=== PATIENT | female | born 1945 | race Caucasian/White ===

== ENCOUNTER 2018-01-26 09:17 | Outpatient (CLI) | payer MEDICARE, BC | END 2018-01-26 09:18 | disposition home or self-care (01) | LOC: BICMAMMO 09:17 | PROVIDERS: ATTEND Family Medicine | DX: Z08 Encounter for follow-up examination after completed treatment for malignant neoplasm (principal); Z85.3 Personal history of malignant neoplasm of breast; R92.2 Inconclusive mammogram | CPT/HCPCS: 77066; G0279 ==

== ENCOUNTER 2018-07-07 10:34 | Outpatient (CLI) | payer MEDICARE, BC ==
--- NOTE | 2018-07-07 13:16 | BD ---
DEXA BONE MINERAL DENSITY STUDY: HISTORY: Osteoporosis screening. Postmenopausal female. COMPARISON: DEXA study from 2017. FINDINGS: Lumbar Spine: BMD (g/cm2) L1 1.056 T-Score: 0.6 2.7 L2 1.007 T-Score: -0.2 2.1 L3 1.320 T-Score: 2.1 4.6 L4 1.246 T-Score: 1.7 4.2 L1-L4 1.157 T-Score: 1.0 3.4 WHO calcification is normal. Femoral Neck: 0.622 T-Score: -2.0 0.0 Total Femur: 0.819 T-Score: -1.0 0.7 WHO calcification of osteopenia. Impression: Osteopenia left femoral neck. POS: ELVIE
== END 2018-07-07 10:35 | disposition home or self-care (01) ==
LOC: BICMAMMO 10:34
PROVIDERS: ATTEND Internal Medicine Hematology & Oncology
DX: M85.852 Other specified disorders of bone density and structure, left thigh (principal); C50.919 Malignant neoplasm of unspecified site of unspecified female breast
CPT/HCPCS: 77080

== ENCOUNTER 2019-02-05 13:19 | Outpatient (CLI) | payer MEDICARE, BC ==
--- NOTE | 2019-02-05 14:41 | MMO ---
Bilateral MAMMO Bilat Diag DDI+DONNIE. CLINICAL HISTORY: Patient is 73 years old and is seen for diagnostic exam. The patient has no family history of breast cancer. 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 VIEWS: The views performed were: bilateral craniocaudal with tomosynthesis; bilateral mediolateral oblique with tomosynthesis; and bilateral mediolateral. FILMS COMPARED: The present examination has been compared to prior imaging studies performed at [facility] on 12/30/2015, 01/06/2017, 01/26/2018 and 02/05/2019. MAMMOGRAM FINDINGS: There are scattered fibroglandular densities. There is a new irregular mass measuring 9 millimeters with indistinct margins seen in the left breast at 3 o'clock. Ultrasound demonstrates a corresponding hypoechoic mass. In the right breast, there are no suspicious masses, calcifications or areas of architectural distortion. IMPRESSION: NEW MASS IN THE LEFT BREAST IS SUSPICIOUS. AN ULTRASOUND-GUIDED BREAST BIOPSY IS RECOMMENDED. RESULTS AND RECOMMENDATIONS DISCUSSED WITH THE PATIENT AND QUESTIONS ANSWERED. THE RESULTS OF THIS EXAM WERE SENT TO THE PATIENT. ACR BI-RADS Category 4 - Suspicious abnormality - biopsy should be considered MAMMOGRAPHY NOTE: 1. A negative mammogram report should not delay a biopsy if a dominant of clinically suspicious mass is present. 2. Approximately 10% to 15% of breast cancers are not detected by mammography. 3. Adenosis and dense breasts may obscure an underlying neoplasm.
--- NOTE | 2019-02-05 14:58 | ULT ---
LIMITED LEFT BREAST ULTRASOUND: DATE: 02/05/2019. PROVIDED CLINICAL HISTORY: Abnormal mammogram. FINDINGS: Limited sonographic interrogation was performed of the left breast at the 3 o'clock position in the r egion of mammographic concern. A taller than wide irregular hypoechoic mass measuring approximately 7 mm maximally is demonstrated, corresponding to the mammogram finding. IMPRESSION: BIRADS category 4 - suspicious abnormality. Ultrasound-guided biopsy is recommended. Results and recommendations discussed with the patient, who voiced understanding. POS: OFF
--- NOTE | 2019-02-05 15:51 | MMO ---
Left Breast MAMMO Unilat Diag DDI LT. CLINICAL HISTORY: Patient is 73 years old and is seen for diagnostic exam. 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 VIEWS: The views performed were: . FILMS COMPARED: The present examination has been compared to prior imaging studies performed at [facility] on 01/06/2017, 01/26/2018 and 02/05/2019. MAMMOGRAM FINDINGS: There are scattered fibroglandular densities. There is a biopsy clip seen in the left breast. IMPRESSION: BIOPSY CLIP IN THE LEFT BREAST IS CONFIRMED UTILIZING POST PROCEDURE MAMMOGRAM. THE RESULTS OF THIS EXAM WERE SENT TO THE PATIENT. MAMMOGRAPHY NOTE: 1. A negative mammogram report should not delay a biopsy if a dominant of clinically suspicious mass is present. 2. Approximately 10% to 15% of breast cancers are not detected by mammography. 3. Adenosis and dense breasts may obscure an underlying neoplasm.
--- NOTE | 2019-02-05 16:00 | ULT ---
ULTRASOUND GUIDED LEFT BREAST BIOPSY: DATE: 02/05/2019. PROVIDED CLINICAL HISTORY: Left breast mass. FINDINGS: Informed consent was obtained from the patient. The patient was placed on the sonography table in th e supine position and the previously described 3 o'clock left breast mass was localized sonographical ly. The skin overlying this region was prepped and draped in the usual sterile manner. The soft tis sues were infiltrated with 1% buffered Lidocaine. A small skin incision was made. Under continuous sonographic guidance, a 14-gauge core biopsy device was advanced adjacent to the lesion and 5 core sa mples were obtained. Subsequently, ultrasound guidance was utilized to deploy a biopsy site marker a djacent to the mass. The needle was removed and hemostasis achieved. No immediate complications. IMPRESSION: Technically successful ultrasound-guided left biopsy. Please correlate with histology results to fol low. POS: OFF
== END 2019-02-05 13:20 | disposition home or self-care (01) ==
LOC: BICMAMMO 13:19
PROVIDERS: ATTEND Internal Medicine Hematology & Oncology
DX: Z08 Encounter for follow-up examination after completed treatment for malignant neoplasm (principal); N63.20 Unspecified lump in the left breast, unspecified quadrant; Z85.3 Personal history of malignant neoplasm of breast; Z98.890 Other specified postprocedural states
CPT/HCPCS: 19083; 76642; 77065; 77066; G0279; 88305; 88341; 88342

== ENCOUNTER 2019-02-16 07:21 | Day surgery (SDC) | payer MEDICARE, BC ==
[2019-02-15 14:38] VITALS: BMI 30.1
--- NOTE | 2019-02-16 09:43 | NM ---
LYMPHOSCINTIGRAPHY: HISTORY: Malignant neoplasm of the left upper outer breast. TECHNIQUE: A lymphoscintigraphy was performed after administration of 0.439 mCi of Technetium 99m filtered sulfu r colloid in a periareolar fashion. FINDINGS: Uptake in the periareolar region is from the injections. Three axillary lymph nodes are seen with montes bsequent imaging. IMPRESSION: Three left axillary sentinel lymph nodes. POS: ELVIE
[2019-02-16] MEDS ORDERED: Bupivacaine/Epinephrine 0.25% 30 ML VIAL ONE (09:53)
[2019-02-16] MEDS ORDERED: Isosulfan Blue 50 MG/5 ML VIAL ONE (09:53)
[2019-02-16] MEDS ORDERED: Lidocaine 2% PF 5 ML VIAL ONE (09:53)
[2019-02-16 10:03] LABS: #Eosinphils 0.1 thou/uL (0.0-0.7); #Lymphocytes 2.1 thou/uL (1.20-3.40); #Monocytes 0.3 thou/uL (0.11-0.59); #Neutrophils 3.9 thou/uL (1.40-6.50); %Basophils 0.8 % (0.0-1.0); %Eosinophils 1.4 % (0.0-10.0); %Lymphocytes 32.2 % (21.0-51.0); %Neutrophils 60.6 % (42.0-75.0); Hemoglobin 12.1 g/dL (12.0-16.0); Mean Corpuscular HGB CONC 33.5 g/dL (32.0-36.0); Mean Corpuscular Hemoglobin 32.8 pg (27.0-31.0); Mean Corpuscular Volume 97.8 fL (78.0-98.0); Mean Platelet Volume 10.4 fL (7.4-10.4); Platelet Count 170 thou/uL (130-400); RBC Distribution Width 12.2 % (11.5-14.5); Red Blood Cell (RBC) Count 3.69 mill/uL (4.20-5.40); White Blood Cell (WBC) Count 6.4 thou/uL (4.8-10.8)
--- NOTE | 2019-02-16 10:09 | RAD ---
Exam: Chest one view HISTORY:Preoperative exam Comparison: None FINDINGS: Cardiac silhouette:Cardiomegaly. Pulmonary vessels: Normal Costophrenic angles: Clear LUNGS: No masses or consolidation. Patchy interstitial opacities are presumed to be due to chronic ch sami. Pneumothorax: None Osseous abnormalities: None IMPRESSION: No acute cardiopulmonary process.
[2019-02-16 10:18] LABS: Anion Gap 13 mmol/L (10-20); BUN (Urea Nitrogen) 22 mg/dL (9.8-20.1); Calc. Creatinine Clearance 81 mL/min (70-130); Calcium 9.2 mg/dL (7.8-10.44); Carbon Dioxide 24 mmol/L (23-31); Chloride 106 mmol/L (98-107); Estimated GFR-MDRD 70; Glucose 113 mg/dL (83-110); Potassium 4.1 mmol/L (3.5-5.1); Sodium 139 mmol/L (136-145)
[2019-02-16] MEDS ORDERED: Fentanyl 100 MCG/2 ML VIAL ONE (10:53)
--- NOTE | 2019-02-16 13:15 | MMO ---
Exam: Surgical specimen radiograph HISTORY: Previous breast biopsy. FINDINGS: Single radiograph of the surgical specimen demonstrates the surgical clip. Findings were co nveyed to the surgeon. IMPRESSION: Surgical clip is noted in the specimen.
[2019-02-16] MEDS ORDERED: HYDROcodone/Acetaminophen 5/325 mg Tablet ONE (14:39)
[2019-02-16] MEDS ORDERED: Dexamethasone 20 MG/5 ML VIAL ONE (16:23)
[2019-02-16] MEDS ORDERED: PHENYLEPHRINE-NS 100 MCG/ML 10 ML SYRINGE ONE (16:23)
[2019-02-16] MEDS ORDERED: Ondansetron PF 4 MG/2 ML Vial ONE (16:23)
[2019-02-16] MEDS ORDERED: PROPOFOL 200 MG/20 ML VIAL ONE (16:23)
[2019-02-16] MEDS ORDERED: Lidocaine 1% PF 5 ML VIAL ONE (16:23)
[2019-02-16] MEDS ORDERED: ePHEDrine 50 MG/ML VIAL ONE (16:23)
--- NOTE | 2019-02-22 00:06 | PDOC.OP ---
Operative Note - Operative Note Operative Note: PROCEDURE: Left breast lumpectomy and sentinel lymph node biopsy SURGEON: Brittanie Sampson M.D. DATE: 02/16/2019 PREOPERATIVE DIAGNOSIS: Recurrent left breast cancer POSTOPERATIVE DIAGNOSIS: Recurrent left breast cancer HISTORY: Patient is status post lumpectomy and sentinel lymph node biopsy for invasive left breast cancer 5 years ago. She did not undergo postoperative radiation therapy or chemotherapy but has been on hormonal therapy. She had a recurrent mass on mammogram this year and was found to have a 7 mm recurrent invasive cancer in the same quadrant of her breast. She has decided to proceed with breast conservation with postoperative radiation therapy, and repeat sentinel lymph node biopsy with axillary dissection if this is unsuccessful. Her axilla is clinically and ultrasonographically negative. She did have 2 lymph nodes light up on lymphoscintigraphy. PROCEDURE IN DETAIL: After informed consent was obtained the patient was taken to the operating room and placed in the supine position. General anesthesia was administered and the breast was prepped with all call and let fissure and injected subdermally behind the nipple. The breast was massaged for 5 minutes, and then the patient was positioned, prepped and draped. Local anesthesia was infused to the previous axillary incision. The skin was incised and dissection carried down to the area of highest activity by neoprobe. 2 small grossly normal -appearing lymph nodes were identified with a blue lymphatic leading to them. These were both excised and target counts performed. The first one had a target count of 155 and the second one had a target count of 25. Axilla was examined and palpated and no other palpable abnormal nodes were found. However there was an area of increased activity by neoprobe under the pectoralis minor representing level II lymph nodes. 2 active lymph nodes were identified, neither of which were grossly abnormal or enlarged. These both had target counts intermediate to the first 2 lymph nodes. No other areas of increased activity or abnormal palpable nodes were identified. The wound was irrigated and hemostasis verified. Additional local anesthesia was infused for postoperative pain control and the subcutaneous tissues were reapproximated with 3-0 Monocryl suture and the skin closed with 4-0 Monocryl suture. Attention was then turned to the lumpectomy. The mass in the left lateral breast was not palpable but was easily seen by ultrasound. The margins of the mass were marked on the overlying skin and a periareolar incision made. Flaps were raised in all directions and dissection was then carried down to the level of the pectoralis fascia. The tissue was dissected off of the pectoralis fascia leaving the fascia intact. The specimen was removed and marked for orientation with a long lateral, short superior, and deep superficial suture. He was examined by ultrasound and presence of the mass within the central portion of the specimen was confirmed. It was sent for specimen mammogram which showed presence of the mass and clip within the specimen. The wound was irrigated and hemostasis obtained using Bovie electrocautery. Additional local anesthesia was infused circumferentially for postoperative pain control. The subcutaneous tissues were reapproximated with a running 3-0 Monocryl suture and additional local anesthesia infused into the biopsy cavity. The skin was then closed with a running 4-0 subcuticular Monocryl suture. Dermabond dressings were placed to both incisions and once this was dry, fluffs compression dressings were placed and secured to the skin with tape. The patient was extubated and taken to the recovery room in good condition. Estimated blood loss was minimal. There were no complications. Specimens are sentinel lymph nodes 4 and left breast mass.
== END 2019-02-16 15:12 | disposition home or self-care (01) ==
LOC: SDC 07:21
PROVIDERS: ATTEND Surgery
PROC: 0HBU0ZZ Excision of Left Breast, Open Approach (ICD-10-PCS; principal; 2019-02-16)
PROC: 07B60ZX Excision of Left Axillary Lymphatic, Open Approach, Diagnostic (ICD-10-PCS; 2019-02-16)
DX: C50.812 Malignant neoplasm of overlapping sites of left female breast (principal); C77.3 Secondary and unspecified malignant neoplasm of axilla and upper limb lymph nodes; I10 Essential (primary) hypertension; E78.5 Hyperlipidemia, unspecified; F41.9 Anxiety disorder, unspecified; R73.03 Prediabetes; Z17.0 Estrogen receptor positive status [ER+]; Z79.811 Long term (current) use of aromatase inhibitors; Z79.899 Other long term (current) drug therapy; Z91.018 Allergy to other foods; Z90.12 Acquired absence of left breast and nipple
CPT/HCPCS: 19301; 38525; 38900; 71045; 76098; 78195; 80048; 85025; 88307; 88342; 93005; A9541; Q9968; 93010; J0131; J0690; J1100; J2001; J2405; J2704; J3010; J3490

== ENCOUNTER 2019-07-17 09:15 | Outpatient (CLI) | payer MEDICARE, BC ==
--- NOTE | 2019-07-17 10:48 | BD ---
DEXA BONE DENSITY SCAN: Date: 07/17/19 COMPARISON: 07/07/18. HISTORY: Postmenopausal female undergoing screening for osteoporosis. Lumbar Spine BMD (g/cm2) L1 1.019 T-Score 0.3 (previous 0.6) L2 1.028 T-Score 0.0 (previous -0.2) L3 1.405 T-Score 2.9 (previous 2.1) L4 1.330 T-Score 2.4 (previous 1.7) L1-L4 1.194 T-Score 1.3 (previous 1.0) Femoral Neck 0.626 T-Score -2.0 (previous -2.0) Total Femur 0.829 T-Score -0.9 (previous -1.0) IMPRESSION: Stable osteopenia within the femoral neck, correlating with a moderately increased risk for fracture. POS: TPC
== END 2019-07-17 09:16 | disposition home or self-care (01) ==
LOC: BICMAMMO 09:15
PROVIDERS: ATTEND Internal Medicine Hematology & Oncology
DX: Z13.820 Encounter for screening for osteoporosis (principal); C50.512 Malignant neoplasm of lower-outer quadrant of left female breast; T38.6X5A Adverse effect of antigonadotrophins, antiestrogens, antiandrogens, not elsewhere classified, initial encounter; M85.859 Other specified disorders of bone density and structure, unspecified thigh
CPT/HCPCS: 77080

== ENCOUNTER 2020-02-07 10:19 | Outpatient (CLI) | payer MEDICARE, BC ==
--- NOTE | 2020-02-07 11:20 | MMO ---
Bilateral MAMMO Bilat Diag DDI+DONNIE. CLINICAL HISTORY: Patient is 74 years old and is seen for diagnostic exam. The patient has no family history of breast cancer. The patient has a history of Excisional biopsy procedure revealed invasive ductal left breast carcinoma in February,; excisional breast biopsy procedure revealed invasive mucinous left breast carcinoma and Core biopsy procedure revealed invasive mucinous left breast carcinoma in November,. The patient has a history of left Ultrasound Guided Core Biopsy in 2018 - invasive ductal carcinoma, left Lumpectomy in Dec, 2014 - invasive ductal carcinoma and left needle biopsy in November, - malignant. VIEWS: The views performed were: bilateral craniocaudal with tomosynthesis; bilateral mediolateral oblique with tomosynthesis; and bilateral mediolateral with tomosynthesis. FILMS COMPARED: The present examination has been compared to prior imaging studies performed at [facility] on 01/26/2018 and 02/05/2019. This study has been interpreted with the assistance of computer-aided detection. MAMMOGRAM FINDINGS: There are scattered fibroglandular densities. There are post operative changes seen in the left breast. There are no suspicious masses, suspicious calcifications, or new areas of architectural distortion. IMPRESSION: THERE IS NO MAMMOGRAPHIC EVIDENCE OF MALIGNANCY. A ROUTINE FOLLOW-UP MAMMOGRAM IN 1 YEAR IS RECOMMENDED. THE RESULTS OF THIS EXAM WERE SENT TO THE PATIENT. ACR BI-RADS Category 2 - Benign finding MAMMOGRAPHY NOTE: 1. A negative mammogram report should not delay a biopsy if a dominant of clinically suspicious mass is present. 2. Approximately 10% to 15% of breast cancers are not detected by mammography. 3. Adenosis and dense breasts may obscure an underlying neoplasm. Reported by: WILNER PLAZA MD Electonically Signed: [id number]
== END 2020-02-07 10:20 | disposition home or self-care (01) ==
LOC: BICMAMMO 10:19
PROVIDERS: ATTEND Internal Medicine Hematology & Oncology
DX: C50.912 Malignant neoplasm of unspecified site of left female breast (principal)
CPT/HCPCS: 77066; G0279

== ENCOUNTER 2020-07-29 08:20 | Outpatient (CLI) | payer MEDICARE, BC ==
--- NOTE | 2020-07-29 09:01 | BD ---
EXAM: Bone densitometry using DEXA HISTORY: 75 yo female. Screening for postmenopausal osteoporosis FINDINGS: L1--bone mineral density 0.978 g/sq cm; T score -0.1 ; Z score 2.1 L2--bone mineral density 1.06 g/sq cm; T score 0.5 ; Z score 3.0 L3--bone mineral density 1.390 g/sq cm; T score 2.8 ; Z score 5.3 L4--bone mineral density 1.310 g/sq cm; T score 2.3 ; Z score 4.9 Total L1-L4--bone mineral density 1.199 g/sq cm; T score 1.4 ; Z score 3.8 Left femoral neck--bone mineral density0.587; T score -2.4 ; Z score -0.2 Total proximal left femur--bone mineral density 0.809; T score -1.1 ; Z score 0.8 There has been an interval improvement of 0.4% in the BMD of the lumbar spine and a reduction of 2. 5% in the BMD of the proximal femur since the previous study of 07/17/2019. The 10 year fracture risk for a major osteoporotic fracture is 16% and for a hip fracture is 4.7%. IMPRESSION: Osteopenia
== END 2020-07-29 08:21 | disposition home or self-care (01) ==
LOC: BICMAMMO 08:20
PROVIDERS: ATTEND Internal Medicine Hematology & Oncology
DX: Z13.820 Encounter for screening for osteoporosis (principal); M85.852 Other specified disorders of bone density and structure, left thigh; Z78.0 Asymptomatic menopausal state
CPT/HCPCS: 77080

== ENCOUNTER 2021-02-06 08:13 | Outpatient (CLI) | payer MEDICARE, BC | END 2021-02-06 08:14 | disposition home or self-care (01) | LOC: BICMAMMO 08:13 | PROVIDERS: ATTEND Internal Medicine Hematology & Oncology | DX: C50.512 Malignant neoplasm of lower-outer quadrant of left female breast (principal) | CPT/HCPCS: 77066; G0279 ==

== ENCOUNTER 2021-05-19 12:18 | Outpatient (CLI) | payer MEDICARE, BC ==
[~2021-05-19 12:18] MED LIST: Iopamidol-370 76% 500 ML 1 ML ONE
== END 2021-05-19 12:19 | disposition home or self-care (01) ==
LOC: BICCT 12:18
PROVIDERS: ATTEND Otolaryngology Plastic Surgery within the Head & Neck
DX: K11.8 Other diseases of salivary glands (principal)
CPT/HCPCS: 70491; Q9967

== ENCOUNTER 2021-06-04 13:51 | Outpatient (CLI) | payer MEDICARE, BC | END 2021-06-04 13:52 | disposition home or self-care (01) | LOC: BICULT 13:51 | PROVIDERS: ATTEND Otolaryngology Plastic Surgery within the Head & Neck | DX: E07.9 Disorder of thyroid, unspecified (principal); E04.1 Nontoxic single thyroid nodule | CPT/HCPCS: 76536 ==

== ENCOUNTER → 2021-06-18 | Day surgery (SDC) | payer MEDICARE, BC ==
[~2021-06-18] MED LIST changes: -Iopamidol-370 76% 500 ML 1 ML ONE; +Lidocaine 1% PF 5 ML VIAL ONE; +Sodium Bicarbonate 2.5 MEQ/5 ML VIAL ONE
[2021-06-18 13:41] VITALS: BP 124/67; TEMP 97.6
== END ==
LOC: ULT 12:40
PROVIDERS: ATTEND Otolaryngology Plastic Surgery within the Head & Neck
PROC: 0G9H3ZX Drainage of Right Thyroid Gland Lobe, Percutaneous Approach, Diagnostic (ICD-10-PCS; principal; 2021-06-18)
DX: E04.1 Nontoxic single thyroid nodule (principal); K11.8 Other diseases of salivary glands; R73.03 Prediabetes; E78.5 Hyperlipidemia, unspecified; I10 Essential (primary) hypertension; Z79.899 Other long term (current) drug therapy; Z91.018 Allergy to other foods
CPT/HCPCS: 60100; 76942; 88173; 88305

== ENCOUNTER 2021-07-22 12:35 | Outpatient (CLI) | payer MEDICARE, BC ==
[2021-07-22 13:46] LABS: Bilirubin Neg (Negative); Blood, Urine Negative (Negative); Clarity Clear (Clear); Glucose, Urine (Dipstick) Normal (Negative); Ketone, Urine Negative (Negative); Leukocyte 500 (Negative); Nitrite Negative (Negative); Protein, Urine (Dipstick) 15 mg/dl (Neg-Trace)
[2021-07-22 13:48] LABS: #Eosinphils 0.1 10x3/uL (0.0-0.5); #Monocytes 0.4 10x3/uL (0.0-1.1); #Neutrophils 5.4 10x3/uL (1.5-8.4); %Basophils 0.3 % (0.0-2.0); %Eosinophils 1.6 % (0.0-6.0); %Lymphocytes 26.2 % (18.0-47.0); %Monocytes 4.6 % (0.0-10.0); %Neutrophils 67.2 % (40.0-75.0); Mean Corpuscular HGB CONC 32.8 g/dL (32.0-36.0); Mean Corpuscular Volume 100.5 fl (81.6-98.3); Mean Platelet Volume 13.1 fl (7.4-10.4); Platelet Count 188 10x3/uL (150-450); RBC Distribution Width 13.6 % (11.5-14.5); Red Blood Cell (RBC) Count 3.64 10x6/uL (3.90-5.03)
[2021-07-22 13:58] LABS: INR-International Normal Ratio 0.9; Prothrombin Time 10.5 sec (9.5-12.1)
[2021-07-22 14:03] LABS: Anion Gap 13 mmol/L (10-20); BUN (Urea Nitrogen) 25 mg/dL (9.8-20.1); Calc. Creatinine Clearance 0 mL/min (70-130); Calcium 9.1 mg/dL (7.8-10.44); Carbon Dioxide 26 mmol/L (23-31); Chloride 106 mmol/L (98-107); Glucose 139 mg/dL (83-110); Sodium 141 mmol/L (136-145)
[2021-07-23 21:06] LABS: SARS-CoV-2 PCR by NAA Not Detected (NotDetected)
== END 2021-07-22 12:36 | disposition home or self-care (01) ==
LOC: LABBT 12:35
PROVIDERS: ATTEND Orthopaedic Surgery
DX: Z01.818 Encounter for other preprocedural examination (principal); M17.11 Unilateral primary osteoarthritis, right knee; Z20.822 Contact with and (suspected) exposure to COVID-19
CPT/HCPCS: 80048; 81003; 85025; 85610; 87081; 93005; U0003; U0005; 93010

== ENCOUNTER 2021-07-27 05:36 | Day surgery (SDC) | payer MEDICARE, BC ==
[2021-07-21 09:30] VITALS: BMI 27.4
[2021-07-27] MEDS ORDERED: Fentanyl 100 MCG/2 ML VIAL ONE ×4 (06:02→08:58)
[2021-07-27] MEDS ORDERED: Lidocaine 1% (PF) 30 ML VIAL ONE (06:31)
[2021-07-27] MEDS ORDERED: Midazolam HCl 2 mg/2 ml Vial ONE (06:31)
[2021-07-27] MEDS ORDERED: Vancomycin 1 GM/200 ML BAG ONE (06:36)
[2021-07-27] MEDS ORDERED: Tranexamic Acid 1,000 MG/10 ML VIAL ONE (06:36)
[2021-07-27] MEDS ORDERED: Sodium Chloride 0.9% 100 ML ONE (06:37)
[2021-07-27] MEDS ORDERED: Bupivacaine HCl 0.5%/Epinephrine 1:200,000/PF 30 ml Vial ONE (07:12)
[2021-07-27] MEDS ORDERED: PROPOFOL 200 MG/20 ML VIAL ONE (07:12)
[2021-07-27] MEDS ORDERED: Dexamethasone 20 MG/5 ML VIAL ONE (07:12)
[2021-07-27] MEDS ORDERED: Ondansetron PF 4 MG/2 ML Vial ONE (07:12)
[2021-07-27] MEDS ORDERED: ePHEDrine 50 MG/ML VIAL ONE (07:12)
[2021-07-27] MEDS ORDERED: Bupivacaine PF 0.5% 30 ML VIAL ONE (07:44)
[2021-07-27] MEDS ORDERED: Fentanyl 100 MCG/2 ML VIAL IV PRN (07:53)
[2021-07-27] MEDS ORDERED: Ropivacaine 0.2% 550 ML 550 ML NERVE BLCK SCH (08:00)
[2021-07-27] MEDS ORDERED: HYDROcodone/Acetaminophen 10/325 mg Tablet PO PRN ×2 (08:00)
[2021-07-27] MEDS ORDERED: Zolpidem Tartrate 5 MG TAB PO PRN (08:00)
[2021-07-27] MEDS ORDERED: Ondansetron PF 4 MG/2 ML Vial IVP PRN (08:00)
[2021-07-27] MEDS ORDERED: traMADol HCl 50 MG TAB PO PRN ×2 (08:00)
[2021-07-27] MEDS ORDERED: Promethazine HCl 25 MG/ML VIAL IM PRN (08:00)
[2021-07-27] MEDS ORDERED: Ketorolac Tromethamine 30 MG/ML VIAL IVP SCH (12:00)
[2021-07-27] MEDS ORDERED: HYDROcodone/Acetaminophen 10/325 mg Tablet ONE (12:16)
== END 2021-07-27 13:25 ==
LOC: SDC 05:36
PROVIDERS: ATTEND Orthopaedic Surgery
PROC: 0SRC0J9 Replacement of Right Knee Joint with Synthetic Substitute, Cemented, Open Approach (ICD-10-PCS; principal; 2021-07-27)
PROC: 8E0YXBZ Computer Assisted Procedure of Lower Extremity (ICD-10-PCS; 2021-07-27)
PROC: 3E0T3BZ Introduction of Anesthetic Agent into Peripheral Nerves and Plexi, Percutaneous Approach (ICD-10-PCS; 2021-07-27)
DX: M17.11 Unilateral primary osteoarthritis, right knee (principal); G47.33 Obstructive sleep apnea (adult) (pediatric); I10 Essential (primary) hypertension; E78.5 Hyperlipidemia, unspecified; Z91.018 Allergy to other foods; Z79.899 Other long term (current) drug therapy; Z90.710 Acquired absence of both cervix and uterus; Z98.890 Other specified postprocedural states; Z85.3 Personal history of malignant neoplasm of breast; Z98.49 Cataract extraction status, unspecified eye
CPT/HCPCS: 27447; 20985; 64447; 73560; 97139; A4306; C1713; C1776; J1100; J2001; J2250; J2405; J2704; J2795; J3010; J3370; J3490; S0020

== ENCOUNTER 2021-10-13 14:06 | Outpatient (CLI) | payer MEDICARE, BC | END 2021-10-13 14:07 | disposition home or self-care (01) | LOC: BICMAMMO 14:06 | PROVIDERS: ATTEND Internal Medicine Hematology & Oncology | DX: M85.851 Other specified disorders of bone density and structure, right thigh (principal); M85.852 Other specified disorders of bone density and structure, left thigh | CPT/HCPCS: 77080 ==

== ENCOUNTER 2021-12-04 13:58 | Outpatient (CLI) | payer MEDICARE, BC ==
[2021-12-04 16:04] LABS: Hemoglobin 11.1 g/dL (12.0-15.5)
[2021-12-04 16:22] LABS: Anion Gap 13 mmol/L (10-20); BUN (Urea Nitrogen) 27 mg/dL (9.8-20.1); Calc. Creatinine Clearance 0 mL/min (70-130); Carbon Dioxide 25 mmol/L (23-31); Chloride 108 mmol/L (98-107); Glucose 112 mg/dL (83-110); Potassium 4.1 mmol/L (3.5-5.1); Sodium 142 mmol/L (136-145)
[2021-12-04 22:15] LABS: SARS-CoV-2 PCR by NAA Not Detected (NotDetected)
== END 2021-12-04 13:59 | disposition home or self-care (01) ==
LOC: LABBT 13:58
PROVIDERS: ATTEND Otolaryngology Plastic Surgery within the Head & Neck
DX: Z01.812 Encounter for preprocedural laboratory examination (principal); C73 Malignant neoplasm of thyroid gland; E04.1 Nontoxic single thyroid nodule; Z92.3 Personal history of irradiation; Z20.822 Contact with and (suspected) exposure to COVID-19
CPT/HCPCS: 80048; 85014; 85018; U0003; U0005

== ENCOUNTER 2021-12-09 08:54 | Observation (INO) | payer MEDICARE, BC ==
[2021-12-03 12:35] VITALS: BMI 24.1
[2021-12-09] MEDS ORDERED: Lidocaine 1% w/Epinephrine 1:100K 20 ML VIAL ONE (10:16)
[2021-12-09] MEDS ORDERED: Fentanyl 100 MCG/2 ML VIAL ONE ×2 (10:20→13:45)
[2021-12-09] MEDS ORDERED: Famotidine/PF 20 mg/2ml Vial ONE (10:20)
[2021-12-09] MEDS ORDERED: Dexamethasone 20 MG/5 ML VIAL ONE (11:30)
[2021-12-09] MEDS ORDERED: ePHEDrine 50 MG/ML VIAL ONE (11:30)
[2021-12-09] MEDS ORDERED: PHENYLEPHRINE-NS 100 MCG/ML 10 ML SYRINGE ONE (11:30)
[2021-12-09] MEDS ORDERED: PROPOFOL 200 MG/20 ML VIAL ONE (11:30)
[2021-12-09] MEDS ORDERED: Lidocaine 1% PF 5 ML VIAL ONE (11:30)
[2021-12-09] MEDS ORDERED: Succinylcholine 200 MG/10 ml SYRINGE FS ONE (11:30)
[2021-12-09] MEDS ORDERED: Ondansetron PF 4 MG/2 ML Vial ONE (11:30)
[2021-12-09] MEDS ORDERED: Metoclopramide HCl 10 MG/2 ML VIAL ONE (11:30)
[2021-12-09] MEDS ORDERED: Promethazine HCl 25 MG/ML VIAL IM PRN (13:15)
[2021-12-09] MEDS ORDERED: Promethazine HCl 25 MG/ML VIAL IVPB PRN (13:15)
[2021-12-09] MEDS ORDERED: Ondansetron HCl/PF 4 MG/2 ML Vial IVP PRN (13:15)
[2021-12-09] MEDS ORDERED: Morphine 4 MG/ML VIAL SLOW IVP PRN (13:20)
[2021-12-09] MEDS ORDERED: Bacitracin 1 PK TOP PRN (13:25)
[2021-12-09] MEDS: Calcium Carbonate 500 MG TAB PO SCH ×2 (16:22→20:53)
[2021-12-09] MEDS: Hydrocodone-Acetamin 15 ML UDCUP PO PRN ×2 (16:22→21:36)
[2021-12-09] MEDS: Sodium Chloride 0.45% 1,000 ML IV SCH (16:27)
[2021-12-09] MEDS ORDERED: Ondansetron PF 4 MG/2 ML Vial IVP PRN (18:00)
[2021-12-09] MEDS: CEFAZOLIN 1 GM in Sodium Chloride 0.9% 100 ML IVPB SCH (20:53)
[2021-12-10] MEDS: Sodium Chloride 0.45% 1,000 ML IV SCH (03:37)
[2021-12-10] MEDS: CEFAZOLIN 1 GM in Sodium Chloride 0.9% 100 ML IVPB SCH (03:37)
[2021-12-10 05:40] LABS: ALT (SGPT) 9 U/L (8-55); AST (SGOT) 14 U/L (5-34); Albumin 3.6 g/dL (3.4-4.8); Alkaline Phosphatase 50 U/L (40-110); Anion Gap 12 mmol/L (10-20); BUN (Urea Nitrogen) 17 mg/dL (9.8-20.1); Bilirubin, Total 0.4 mg/dL (0.2-1.2); Calc. Creatinine Clearance 69 mL/min (70-130); Calcium 9.2 mg/dL (7.8-10.44); Carbon Dioxide 22 mmol/L (23-31); Chloride 109 mmol/L (98-107); Globulin 2.5 g/dL (2.4-3.5); Glucose 121 mg/dL (83-110); Potassium 4.3 mmol/L (3.5-5.1); Protein, Total 6.1 g/dL (5.8-8.1); Sodium 139 mmol/L (136-145)
[2021-12-10 08:48] VITALS: BP 143/69; TEMP 98.3
[2021-12-10] MEDS ORDERED: Citalopram 10 MG TAB PO SCH (09:00)
[2021-12-10] MEDS ORDERED: Calcitriol 0.25 MCG CAP PO SCH (09:00)
[2021-12-10] MEDS ORDERED: Losartan 25 MG TAB PO SCH (09:00)
[2021-12-10] MEDS: Calcium Carbonate 500 MG TAB PO SCH (09:02)
== END 2021-12-10 11:35 | disposition home or self-care (01) ==
LOC: SDC 08:54 → SJJU 13:23
PROVIDERS: ADMIT Otolaryngology Plastic Surgery within the Head & Neck; ATTEND Otolaryngology Plastic Surgery within the Head & Neck
PROC: 0GTK0ZZ Resection of Thyroid Gland, Open Approach (ICD-10-PCS; principal; 2021-12-09)
DX: C73 Malignant neoplasm of thyroid gland (principal); E04.2 Nontoxic multinodular goiter; E89.0 Postprocedural hypothyroidism; R73.03 Prediabetes; E78.5 Hyperlipidemia, unspecified; I10 Essential (primary) hypertension; G47.33 Obstructive sleep apnea (adult) (pediatric); Z85.3 Personal history of malignant neoplasm of breast; Z92.3 Personal history of irradiation; Z79.2 Long term (current) use of antibiotics; Z79.83 Long term (current) use of bisphosphonates; Z79.899 Other long term (current) drug therapy; Z91.018 Allergy to other foods
CPT/HCPCS: 60260; 80053; 83970; C1776; 36415; 88307; 96374; 96376; G0378; J0690; J1100; J2405; J2704; J2765; J3010; J3490; S0028

== ENCOUNTER 2022-02-08 09:59 | Outpatient (CLI) | payer MEDICARE, BC | END 2022-02-08 10:00 | disposition home or self-care (01) | LOC: BICMAMMO 09:59 | PROVIDERS: ATTEND Surgery | DX: Z08 Encounter for follow-up examination after completed treatment for malignant neoplasm (principal); Z85.3 Personal history of malignant neoplasm of breast | CPT/HCPCS: 77066; G0279 ==

== ENCOUNTER 2022-03-31 12:05 | Outpatient (CLI) | payer MEDICARE, BC | END 2022-03-31 12:06 | disposition home or self-care (01) | LOC: NM 12:05 | PROVIDERS: ATTEND Internal Medicine Endocrinology, Diabetes & Metabolism | DX: C73 Malignant neoplasm of thyroid gland (principal) | CPT/HCPCS: 78018; A9517 ==

== ENCOUNTER 2022-11-04 13:55 | Outpatient (CLI) | payer MEDICARE, BC | END 2022-11-04 13:56 | disposition home or self-care (01) | LOC: BICMAMMO 13:55 | PROVIDERS: ATTEND Internal Medicine Hematology & Oncology | DX: M85.852 Other specified disorders of bone density and structure, left thigh (principal); M81.0 Age-related osteoporosis without current pathological fracture; T38.6X5A Adverse effect of antigonadotrophins, antiestrogens, antiandrogens, not elsewhere classified, initial encounter | CPT/HCPCS: 77080 ==

== ENCOUNTER 2023-02-16 08:48 | Outpatient (CLI) | payer MEDICARE, BC | END 2023-02-16 08:49 | disposition home or self-care (01) | LOC: BICMAMMO 08:48 | PROVIDERS: ATTEND Specialist | DX: C50.919 Malignant neoplasm of unspecified site of unspecified female breast (principal) | CPT/HCPCS: 77066; G0279 ==

== ENCOUNTER 2024-02-22 10:23 | Outpatient (CLI) | payer MEDICARE, BC | END 2024-02-22 10:24 | disposition home or self-care (01) | LOC: BICMAMMO 10:23 | PROVIDERS: ATTEND Specialist | DX: Z12.31 Encounter for screening mammogram for malignant neoplasm of breast (principal); Z85.850 Personal history of malignant neoplasm of thyroid; Z85.3 Personal history of malignant neoplasm of breast; Z98.890 Other specified postprocedural states | CPT/HCPCS: 77063; 77067 ==

== ENCOUNTER 2024-03-14 11:34 | Outpatient (CLI) | payer MEDICARE, BC | END 2024-03-14 11:35 | disposition home or self-care (01) | LOC: BICRAD 11:34 | PROVIDERS: ATTEND Family Medicine | DX: S39.92XA Unspecified injury of lower back, initial encounter (principal); R07.9 Chest pain, unspecified; M47.816 Spondylosis without myelopathy or radiculopathy, lumbar region; M41.9 Scoliosis, unspecified; M47.814 Spondylosis without myelopathy or radiculopathy, thoracic region | CPT/HCPCS: 72072; 72100; 72220 ==

== ENCOUNTER 2024-04-18 13:01 | Outpatient (CLI) | payer MEDICARE, BC | END 2024-04-18 13:02 | disposition home or self-care (01) | LOC: ULT 13:01 | PROVIDERS: ATTEND Internal Medicine Hematology & Oncology | DX: R07.1 Chest pain on breathing (principal); R59.0 Localized enlarged lymph nodes; C50.512 Malignant neoplasm of lower-outer quadrant of left female breast | CPT/HCPCS: 71046; 76999 ==

== ENCOUNTER 2024-05-31 08:00 | Outpatient (CLI) | payer MEDICARE, BC | END 2024-05-31 08:01 | disposition home or self-care (01) | LOC: PET 08:00 | PROVIDERS: ATTEND Internal Medicine Hematology & Oncology | DX: C83.32 Diffuse large B-cell lymphoma, intrathoracic lymph nodes (principal); R59.0 Localized enlarged lymph nodes; C79.51 Secondary malignant neoplasm of bone | CPT/HCPCS: 78815; A9552 ==